=== PATIENT | male | born 1950 | race Caucasian/White ===

== ENCOUNTER → 2018-07-19 | Day surgery (SDC) | payer MEDICARE ==
[2018-07-13 13:26] LABS: BASOPHILS # (AUTO) 0.1 (0.0-0.1); BASOPHILS % 0.7 % (0.0-1.0); EOSINOPHILS # (AUTO) 0.2 (0.0-0.4); EOSINOPHILS % 2.1 % (0.0-6.0); HEMATOCRIT 45.6 % (38.2-49.6); HEMOGLOBIN 15.8 g/dL (14.0-18.0); LYMPHOCYTES # (AUTO) 1.7 (1.0-3.2); LYMPHOCYTES % 23.8 % (18.0-39.1); MEAN CORPUSCULAR HEMOGLOBIN 31.3 pg (28-32); MEAN CORPUSCULAR HGB CONC 34.6 g/dL (31-35); MEAN CORPUSCULAR VOLUME 90.3 fL (81-99); MONOCYTES # (AUTO) 0.6 (0.2-0.8); MONOCYTES % 7.9 % (4.4-11.3); NEUTROPHILS # (AUTO) 4.6 (2.1-6.9); NEUTROPHILS % 65.2 % (38.7-80.0); PLATELET COUNT 137 x10e3/uL (140-360); RED BLOOD COUNT 5.05 x10e6/uL (4.3-5.7); RED CELL DISTRIBUTION WIDTH 13.4 % (11.7-14.4)
[2018-07-13 13:43] LABS: ANION GAP 16.1 mmol/L (8-16); CALCIUM 10.3 mg/dL (8.4-10.2); CREATININE, SERUM 2.36 mg/dL (0.72-1.25); POTASSIUM 3.1 mmol/L (3.5-5.1)
[~2018-07-19] MED LIST: ACETAMINOPHEN 1000 MG/100 ML IV ONE; AMIODARONE HCL200 MG PO; ASPIR 8181 MG PO; ATORVASTATIN CA20 MG PO; BACITRACIN 50,000 UNIT VIAL ONE; CEFTRIAXONE SOD 1 GM/NS 50 ML 50 ML IV ONE; CLONAZEPAM1 MG PO; CLOPIDOGREL75 MG PO; FENTANYL CITRATE/PF 100MCG/2 ML INJ ONE; GLIMEPIRIDE2 MG PO; GLYCOPYRROLATE INJ 1MG/ 5 ML SYR ONE; HYDROCODONE/APAP 7.5MG-325MG 1 EA TAB ONE; KLOR-CON M2020 MEQ PO; LEVEMIR100 UNIT/1 SQ; LEVOTHYROXINE50 MCG PO; LIDOCAINE HCL 1% LOCAL INJ 20 ML VIAL ONE; LIDOCAINE HCL 2% LOCAL INJ 5 ML SDV VIAL INJ ONE; METOLAZONE5 MG PO; METOPROLOL TART25 MG PO; MIDAZOLAM HCL 2 MG/2 ML VIAL ONE; NITROGLYCERIN0.4 MG SL; ONDANSETRON HCL INJ 2MG/ML 2ML 2 MG/ML VIAL ONE; PHENYLEPHRINE HCL 1% 10 MG/ML VIAL ONE; POTASSIUM CHLORIDE 20MEQ/100ML 100 ML ONE; PRAMIPEXOLE D0.25 MG PO; PROPOFOL IV EMULSION 10 MG/ML 20 ML VIAL ONE; RANEXA500 MG PO; SERTRALINE HCL50 MG PO; SEVOFLURANE INHAL SOLN 250 ML PEN BTL ONE; TAMSULOSIN HCL0.4 MG PO; TORSEMIDE10 MG PO; VITAMIN D250000 UNIT PO; VITAMIN E400 UNI1 PO
--- OUTSIDE RECORDS SUMMARY | 2018-07-19 08:40 | XMS REPORT | Continuity of Care Document ---
Author Author [facility] Address Unknown Phone Unavailable Problems Problem Status Onset Date Classification Date Reported Comments Source PAD Active Problem 11/10/2015 [facility] CAD Active Problem 11/10/2015 [facility] Type 2 diabetes mellitus with diabetic peripheral angiopathy without gangrene Active Problem 11/10/2015 [facility] RLS Active Problem 11/10/2015 [facility] CHF Active Problem 11/10/2015 [facility] SUDEEP Active Problem 11/10/2015 [facility] Pure hypercholesterolemia Active Problem 11/10/2015 [facility] Renal insufficiency Active Problem 11/10/2015 [facility] Anemia Active Diagnosis 06/03/2015 [facility] Fatigue Active Diagnosis 05/29/2015 [facility] Hypotension Active Diagnosis 05/29/2015 [facility] Paraproteinemia Active Diagnosis 07/31/2015 [facility] Colon cancer Active Diagnosis 11/10/2015 [facility] COPD Active Problem 11/10/2015 [facility] Colonic mass Active Diagnosis 07/31/2015 [facility] Medications Medication Details Route Status Patient Instructions Ordering Provider Order Date Source Ventolin HFA 2 puffs as needed Inhalation Active 108 (90 Base) MCG/ACT Inhalation every 4 hrs [place] 08/26/2015 [facility] ProAir HFA 1 to 2 q 4 hrs prn wheezing Inhalation Active 108 (90 Base) MCG/ACT Inhalation every 4 hrs [place] 08/20/2015 [facility] Metformin HCl 1 tablet with meals Orally No Longer Active 500 mg Orally daily [place] 06/02/2015 [facility] Potassium 1 tablet Orally Active 95 MG Orally Once a day [facility] Ranexa 1 tablet Orally Active 500 MG Orally Twice a day [facility] Magnesium 1 tablet with a meal Orally Active 250 MG Orally Once a day [facility] Diltiazem HCl 1 capsule on an empty stomach in the morning Orally Active 120 MG Orally Once a day [facility] Metoprolol Succinate ER 1 tablet Orally Active 25 MG Orally Once a day [facility] Levemir Flexpen 58 UNITS Subcutaneous Active 100 UNIT/ML Subcutaneous daily [facility] B Complex 1 tablet Orally Active Orally daily [facility] Clonazepam 1/2 half tablet Orally Active 1 MG Orally every day (qd) prn [facility] Iron 1 tablet Orally Active 65 MG Orally daily [facility] Furosemide 2 tablets Orally Active 40 mg Orally twice a day (bid) [facility] Atorvastatin Calcium 1/2 half tablet Orally Active 20 mg Orally Once a day [facility] Nitroglycerin Unknown Sublingual Active 0.4 MG Sublingual [facility] Vitamin D-3 Super Strength Unknown Orally Active 2000 UNIT Orally [facility] Pramipexole Dihydrochloride 2 tablets Orally Active 0.125 MG Orally Once a day prn [facility] Aspirin 1 tablet Orally Active 81 MG Orally Once a day [facility] Nitrostat Unknown Sublingual Active 0.4 MG Sublingual [facility] Clopidogrel Bisulfate 1 tablet Orally Active 75 MG Orally Once a day [facility] Sertraline HCl 1 tablet Orally Active 50 MG Orally Once a day [facility] Metformin HCl 1 tablet with meals Orally Active 500 MG Orally Twice a day [facility] NovoLog Flexpen Unknown Subcutaneous Active 100 UNIT/ML Subcutaneous [facility] Allergies, Adverse Reactions, Alerts Substance Category Reaction Severity Reaction type Status Date Reported Comments Source Iodine Adverse Reaction Info Not Available Adverse Reaction Active 11/09/2015 [facility] Immunizations Immunization Date Given Site Status Last Updated Comments Source Influenza 11/09/2015 completed [facility] Results Order Name Results Value Reference Range Date Interpretation Comments Source Vital Signs Vital Sign Value Date Comments Source Weight 190 11/09/2015 [facility] Height 68 11/09/2015 [facility] Temperature Oral (F) 97.8 F 11/09/2015 [facility] Heart Rate 72 11/09/2015 [facility] Diastolic (mm Hg) 56 11/09/2015 [facility] Systolic (mm Hg) 118 11/09/2015 [facility] Weight 192 09/28/2015 [facility] Height 68 09/28/2015 [facility] Temperature Oral (F) 97.3 F 09/28/2015 [facility] Heart Rate 76 09/28/2015 [facility] Diastolic (mm Hg) 64 09/28/2015 [facility] Systolic (mm Hg) 104 09/28/2015 [facility] Weight 192 07/29/2015 [facility] Height 68 07/29/2015 [facility] Temperature Oral (F) 98.1 F 07/29/2015 [facility] Heart Rate 72 07/29/2015 [facility] Diastolic (mm Hg) 66 07/29/2015 [facility] Systolic (mm Hg) 120 07/29/2015 [facility] Weight 187 06/24/2015 [facility] Height 68 06/24/2015 [facility] Temperature Oral (F) 97.7 F 06/24/2015 [facility] Heart Rate 64 06/24/2015 [facility] Diastolic (mm Hg) 62 06/24/2015 [facility] Systolic (mm Hg) 114 06/24/2015 [facility] Weight 186 06/02/2015 [facility] Height 68 06/02/2015 [facility] Temperature Oral (F) 97.7 F 06/02/2015 [facility] Heart Rate 84 06/02/2015 [facility] Diastolic (mm Hg) 68 06/02/2015 [facility] Systolic (mm Hg) 122 06/02/2015 [facility] Weight 188 05/25/2015 [facility] Height 68 05/25/2015 [facility] Temperature Oral (F) 99.0 F 05/25/2015 [facility] Heart Rate 76 05/25/2015 [facility] Diastolic (mm Hg) 50 05/25/2015 [facility] Systolic (mm Hg) 110 05/25/2015 [facility] Encounters Location Location Details Encounter Type Encounter Number Reason For Visit Attending Provider ADM Date DC Date Status Source [facility] Consult [id number] 05/25/2015 05/25/2015 [facility] Consult [id number] 05/25/2015 05/25/2015 [facility] Consult [id number] 05/25/2015 05/25/2015 [facility] Consult [id number] 05/25/2015 05/25/2015 [facility] Consult [id number] 05/25/2015 05/25/2015 [facility] Consult [id number] 05/25/2015 05/25/2015 [facility] Consult [id number] 05/25/2015 05/25/2015 [facility] Consult [id number] 05/25/2015 05/25/2015 [facility] Consult [id number] 05/25/2015 05/25/2015 [facility] Consult [id number] 05/25/2015 05/25/2015 [facility] Needs call back from Medical Staff [id number] 05/25/2015 05/25/2015 [facility] Needs call back from Medical Staff [id number] 05/25/2015 05/25/2015 [facility] Needs call back from Medical Staff [id number] 05/25/2015 05/25/2015 [facility] Needs call back from Medical Staff [id number] 05/25/2015 05/25/2015 [facility] Needs call back from Medical Staff [id number] 05/25/2015 05/25/2015 [facility] Needs call back from Medical Staff [id number] 05/25/2015 05/25/2015 [facility] Needs call back from Medical Staff [id number] 05/25/2015 05/25/2015 [facility] Needs call back from Medical Staff [id number] 05/25/2015 05/25/2015 [facility] Needs call back from Medical Staff [id number] 05/25/2015 05/25/2015 [facility] Needs call back from Medical Staff [id number] 05/25/2015 05/25/2015 [facility] Needs call back from Medical Staff [id number] 05/25/2015 05/25/2015 [facility] 1 wk fu [id number] 06/02/2015 06/02/2015 [facility] 1 wk fu [id number] 06/02/2015 06/02/2015 [facility] 1 wk fu [id number] 06/02/2015 06/02/2015 [facility] 1 wk fu [id number] 06/02/2015 06/02/2015 [facility] 1 wk fu [id number] 06/02/2015 06/02/2015 [facility] 1 wk fu [id number] 06/02/2015 06/02/2015 [facility] 1 wk fu [id number] 06/02/2015 06/02/2015 [facility] 1 wk fu [id number] 06/02/2015 06/02/2015 [facility] 1 wk fu [id number] 06/02/2015 06/02/2015 [facility] Unknown [id number] 06/02/2015 06/02/2015 [facility] Unknown [id number] 06/02/2015 06/02/2015 [facility] Unknown [id number] 06/02/2015 06/02/2015 [facility] Unknown [id number] 06/02/2015 06/02/2015 [facility] Unknown [id number] 06/02/2015 06/02/2015 [facility] Unknown [id number] 06/02/2015 06/02/2015 [facility] Unknown [id number] 06/02/2015 06/02/2015 [facility] Unknown [id number] 06/02/2015 06/02/2015 [facility] 3 wk [id number] 06/24/2015 06/24/2015 [facility] 3 wk [id number] 06/24/2015 06/24/2015 [facility] 3 wk [id number] 06/24/2015 06/24/2015 [facility] 3 wk [id number] 06/24/2015 06/24/2015 [facility] 3 wk [id number] 06/24/2015 06/24/2015 [facility] 3 wk [id number] 06/24/2015 06/24/2015 [facility] 3 wk [id number] 06/24/2015 06/24/2015 [facility] 5 wks fu [id number] 07/29/2015 07/29/2015 [facility] 5 wks fu [id number] 07/29/2015 07/29/2015 [facility] 5 wks fu [id number] 07/29/2015 07/29/2015 [facility] 5 wks fu [id number] 07/29/2015 07/29/2015 [facility] 5 wks fu [id number] 07/29/2015 07/29/2015 [facility] 5 wks fu [id number] 07/29/2015 07/29/2015 [facility] Unknown [id number] 08/20/2015 08/20/2015 [facility] Unknown [id number] 08/20/2015 08/20/2015 [facility] Unknown [id number] 08/20/2015 08/20/2015 [facility] Unknown [id number] 08/20/2015 08/20/2015 [facility] Unknown [id number] 08/20/2015 08/20/2015 [facility] Unknown [id number] 08/25/2015 08/25/2015 [facility] Unknown [id number] 08/25/2015 08/25/2015 [facility] Unknown [id number] 08/25/2015 08/25/2015 [facility] Unknown [id number] 08/25/2015 08/25/2015 [facility] Returned call [id number] 08/27/2015 08/27/2015 [facility] Returned call [id number] 08/27/2015 08/27/2015 [facility] Returned call [id number] 08/27/2015 08/27/2015 [facility] COPD & fu [id number] 09/28/2015 09/28/2015 [facility] COPD & fu [id number] 09/28/2015 09/28/2015 [facility] [id number] 11/09/2015 11/09/2015 [facility] Procedures Procedure Code Date Perfomer Comments Source
[2018-07-19 13:00] VITALS: BP 109/70
--- NOTE | 2018-08-19 15:22 | Operative Report ---
DATE OF PROCEDURE: 07/19/2018 SURGEON: Kit Chanel MD PREOPERATIVE DIAGNOSIS: Malfunction of genitourinary penile prosthesis. POSTOPERATIVE DIAGNOSIS: Malfunction of genitourinary penile prosthesis. PROCEDURE PERFORMED: Removal and replacement of GUPP. ANESTHESIA: General anesthesia. ESTIMATED BLOOD LOSS: 50 mL. INDICATIONS: Mr. Dada Reyes is a 67-year-old gentleman who previously underwent placement of an inflatable penile prosthesis was then unable to deflate the prosthesis on a regular basis. He presents for removal and replacement of this prosthesis. PROCEDURE IN DETAIL: The patient was brought in the operating room, placed in supine position. After administration of general anesthesia, he was prepped and draped in usual sterile fashion. Cole catheter was placed and the balloon inflated. A penoscrotal incision was made sharply and dissection was carried out through the layers of the penis. Taking great care to prevent injury to the urethra. The cavernosa bodies were entered first on the right and subsequently on the left. The corporal cylinders were removed without difficulty. There was some twisting noted of the tubing at the base of the penis. The scrotum was entered and the pump was removed. This had twisted 360 degrees, thereby making inflation, deflation difficult. Both of these were removed. The corporal bodies were irrigated with antibiotic saline using a 14-Serbian red rubber catheter. Both cylinders were replaced with a 21 cm cylinders and the corporal bodies were closed using an interrupted PDS stitch. A new pump was placed as the deflation button was anterior and superficial and the scrotum was closed using Vicryl suture. The previous right inguinal incision was opened and the dissection was carried out through the layers of the abdomen. A horizontal incision was made over the rectus fascia and the previous reservoir was removed. This was replaced with a flat reservoir. The fascial incision was closed and tubing from the scrotum was brought up into the groin using a needle. The pump and the reservoir were then connected using the quick connect method. The device cycled on the field and was noted to provide good rigidity and easy deflation. All wounds were copiously irrigated with antibiotic saline and closed in layers. The skin being closed with a subcuticular stitch. Both wounds were then cleaned and dried and covered with Mastisol, Steri-Strips and a sterile gauze dressing. Anesthesia was reversed and the patient was transferred to a bed and taken to the postanesthesia care unit in good condition. Of note, the needle and instrument count were correct at the conclusion of the case. MD SALTY Cruz/NASH /[id number]
== END | disposition home or self-care (01) ==
LOC: OR 08:38
PROVIDERS: ATTEND Urology
DX: T83.490A Other mechanical complication of implanted penile prosthesis, initial encounter (principal); J44.9 Chronic obstructive pulmonary disease, unspecified; G47.33 Obstructive sleep apnea (adult) (pediatric); I25.810 Atherosclerosis of coronary artery bypass graft(s) without angina pectoris; I25.2 Old myocardial infarction; E11.9 Type 2 diabetes mellitus without complications; E03.9 Hypothyroidism, unspecified; E78.5 Hyperlipidemia, unspecified; M54.9 Dorsalgia, unspecified; M19.90 Unspecified osteoarthritis, unspecified site; F41.9 Anxiety disorder, unspecified; F32.9 Major depressive disorder, single episode, unspecified; R42 Dizziness and giddiness; F17.210 Nicotine dependence, cigarettes, uncomplicated; Y83.1 Surgical operation with implant of artificial internal device as the cause of abnormal reaction of the patient, or of later complication, without mention of misadventure at the time of the procedure; Z91.041 Radiographic dye allergy status; Z01.810 Encounter for preprocedural cardiovascular examination; Z01.812 Encounter for preprocedural laboratory examination; Z79.4 Long term (current) use of insulin; Z79.84 Long term (current) use of oral hypoglycemic drugs; Z68.30 Body mass index [BMI] 30.0-30.9, adult; Z95.1 Presence of aortocoronary bypass graft; Z95.5 Presence of coronary angioplasty implant and graft; Z95.810 Presence of automatic (implantable) cardiac defibrillator
CPT/HCPCS: 36415 ×2; 54416; 80048; 82948; 84132; 85025; 88300; 93005; C1813 ×2; J0131; J0696; J2001 ×2; J2250; J2370; J2405; J2704; J3480; J3490; J3010

== ENCOUNTER → 2019-04-04 | Day surgery (SDC) | payer MEDICARE ==
[2019-03-26 15:19] LABS: BASOPHILS % 0.7 % (0.0-1.0); EOSINOPHILS # (AUTO) 0.1 (0.0-0.4); EOSINOPHILS % 2.1 % (0.0-6.0); HEMATOCRIT 44.9 % (38.2-49.6); HEMOGLOBIN 15.4 g/dL (14.0-18.0); LYMPHOCYTES # (AUTO) 1.2 (1.0-3.2); LYMPHOCYTES % 19.8 % (18.0-39.1); MEAN CORPUSCULAR HEMOGLOBIN 32.1 pg (28-32); MEAN CORPUSCULAR HGB CONC 34.3 g/dL (31-35); MEAN CORPUSCULAR VOLUME 93.5 fL (81-99); MONOCYTES # (AUTO) 0.5 (0.2-0.8); MONOCYTES % 7.8 % (4.4-11.3); NEUTROPHILS # (AUTO) 4.3 (2.1-6.9); NEUTROPHILS % 69.3 % (38.7-80.0); PLATELET COUNT 114 x10e3/uL (140-360); RED CELL DISTRIBUTION WIDTH 12.9 % (11.7-14.4)
[2019-03-26 15:35] LABS: ANION GAP 15.9 mmol/L (8-16); CALCIUM 9.8 mg/dL (8.4-10.2); CREATININE, SERUM 2.44 mg/dL (0.72-1.25); POTASSIUM 3.9 mmol/L (3.5-5.1)
--- NOTE | 2019-03-26 15:39 | Diagnostic Imaging Report ---
EXAMINATION: CHEST 2 VIEWS INDICATION: Pre-operative COMPARISON: None FINDINGS: LINES/TUBES:Left chest AICD. LUNGS:The lungs are well-inflated. No focal consolidation or pulmonary edema. PLEURA:No pleural effusion or pneumothorax. MEDIASTINUM:The cardiomediastinal silhouette appears normal in size and shape. Atherosclerotic calcifications of the thoracic aorta. Postoperative findings of prior CABG. BONES/SOFT TISSUES:No acute osseous injury. Sternotomy wires in place. ABDOMEN:No free air under the diaphragm. IMPRESSION: No focal pneumonia or pulmonary edema. Signed by: Lisa Vincent MD on 03/26/2019 3:36 PM
[~2019-04-04] MED LIST changes: +COMBIVENT RESPIM4 GM IH; +DEXAMETHASONE SOD PHOS INJ 4 MG/ML VIAL ONE; -GLYCOPYRROLATE INJ 1MG/ 5 ML SYR ONE; -HYDROCODONE/APAP 7.5MG-325MG 1 EA TAB ONE; +LIDOCAINE HCL 2% LOCAL 20 ML VIAL ONE; +MELATONIN3 MG PO; -MIDAZOLAM HCL 2 MG/2 ML VIAL ONE; -ONDANSETRON HCL INJ 2MG/ML 2ML 2 MG/ML VIAL ONE; -PHENYLEPHRINE HCL 1% 10 MG/ML VIAL ONE; -POTASSIUM CHLORIDE 20MEQ/100ML 100 ML ONE; +VALERIAN ROOT100 MG PO; +[UNRECOGNIZED DRUG - OTHER] INH
--- OUTSIDE RECORDS SUMMARY | 2019-04-04 07:04 | XMS REPORT ---
[facility] Address Unknown Phone Unavailable Care Team Providers Care Sales Financial Analyst Name Role Phone Johnny POLLACK Unavailable Unavailable Payers Payer Name Policy Type Policy Number Effective Date Expiration Date Problems This patient has no known problems. Allergies, Adverse Reactions, Alerts Allergy Name Allergy Type Status Severity Reaction(s) Onset Date Inactive Date Treating Clinician Comments iodine DA Active MO 2018-12-14 00:00:00 No Known Drug Intolerances DA Active U 2008-08-18 00:00:00 Not Converted 80. See Text. DA Active U 2008-08-18 00:00:00 Medications This patient has no known medications. Results Test Description Test Time Test Comments Text Results Atomic Results Result Comments CHEST 2 VIEWS 2019-03-26 15:36:00 [place] [address] Patient Name: EDWIN COLLINS SR MR #: [id number] : 1950 Age/Sex: 68/M Req #: [id number] Adm Physician: Ordered by: WILBER POLLACK MD Report #: [id number] Location: OR Room/Bed: Procedure: [id number] DX/CHEST 2 VIEWS Exam Date: 03/26/19 Exam Time: 1507 REPORT STATUS: Signed EXAMINATION: CHEST 2 VIEWS INDICATION: Pre-operative COMPARISON: None FINDINGS: LINES/TUBES:Left chest AICD. LUNGS:The lungs are well-inflated. No focal consolidation or pulmonary edema. PLEURA:No pleural effusion or pneumothorax. MEDIASTINUM:The cardiomediastinal silhouette appears normal in size and shape. Atherosclerotic calcifications of the thoracic aorta. Postoperative findings of prior CABG. BONES/SOFT TISSUES:No acute osseous injury. Sternotomy wires in place. ABDOMEN:No free air under the diaphragm. IMPRESSION: No focal pneumonia or pulmonary edema. Signed by: Xiao Grewal MD on 03/26/2019 3:36 PM Dictated By: XIAO GREWAL MD 153 Transcribed By: BROOKLYN on 03/26/19 1536 COPY TO: WILBER POLLACK MD GLUBED 2018-12-16 09:20:00 GLUBED (test code=GLUBED) 218 MG/DL 74-106 [id number] 21:50:00* Test Item Value Reference Range Comments GLUBED (test code=GLUBED) 288 MG/DL 74-106 [id number] 17:57:00* Test Item Value Reference Range Comments POTASSIUM (test code=K) 3.4 mmol/L 3.4-5.0 [id number] 17:35:00* Test Item Value Reference Range Comments GLUBED (test code=GLUBED) 379 MG/DL 74-106 [id number] 12:42:00* Test Item Value Reference Range Comments GLUBED (test code=GLUBED) 418 MG/DL 74-106 RPT,RBV TO PHYSICIAN A VENOUS SPECIMEN SHOULD BE ORDERED FOR GLUCOSE VERIFICATION IF MEDICALLY NECESSARY. BASIC METABOLIC [id number] 09:42:00* Test Item Value Reference Range Comments SODIUM (test code=NA) 132 mmol/L 137-145 POTASSIUM (test code=K) 2.7 mmol/L 3.4-5.0 Critical Value reported toFirst Name:[id number] Last Name:RESULTS READ BACK AND VERIFIEDby DAVID, on 12/15/18, @ 0942. CHLORIDE (test code=CL) 97 mmol/L 98-107 CARBON DIOXIDE (test code=CO2) 23 mmol/L 22-30 GLUCOSE (test code=GLU) 364 mg/dL 74-106 BLOOD UREA NITROGEN (test code=BUN) 81 mg/dL 9-20 GLOMERULAR FILTRATION RATE (test code=GFR) 49 >60 The estimated glomerular filtration rate is computed usingpatient race, age (>18), sex, and serum creatinine. If anyof the needed data elements are missing the Laboratory cannot compute an estimation of the glomerular filtration rate. CREATININE (test code=CREAT) 1.5 mg/dL 0.7-1.3 CALCIUM (test code=CA) 6.7 mg/dL 8.4-10.2 [id number] 09:42:00* Test Item Value Reference Range Comments MAGNESIUM (test code=MAG) 2.3 mg/dL 1.6-2.3 CBC W/AUTO [id number] 09:21:00* Test Item Value Reference Range Comments WHITE BLOOD CELL (test code=WBC) 10.0 x10 3/uL 5.0-12.0 RED BLOOD CELL (test code=RBC) 5.08 x10 6/uL 4.70-6.10 HEMOGLOBIN (test code=HGB) 15.9 g/dL 14.0-18.0 HEMATOCRIT (test code=HCT) 43.8 % 37.0-49.0 MEAN CELL VOLUME (test code=MCV) 86 fL 80-94 MEAN CELL HGB (test code=MCH) 31.3 pg 27-31 MEAN CELL HGB CONCENTRATION (test code=MCHC) 36.3 g/dL 33-37 RED CELL DISTRIBUTION WIDTH (test code=RDW) 13.2 % 11.5-15.5 PLATELET COUNT (test code=PLT) 117 x10 3/uL 130-400 MEAN PLATELET VOLUME (test code=MPV) 11.2 fL 9.4-16.4 NEUTROPHIL % (test code=NT%) 88.4 % 43-65 IMMATURE GRANULOCYTE % (test code=IG%) 0.5 % 0.0-2.0 LYMPHOCYTE % (test code=LY%) 7.0 % 20.5-45.5 MONOCYTE % (test code=MO%) 4.0 % 5.5-11.7 EOSINOPHIL % (test code=EO%) 0.0 % 0.9-2.9 BASOPHIL % (test code=BA%) 0.1 % 0.2-1.0 NUCLEATED RBC % (test code=NRBC%) 0.0 % 0-1.0 NEUTROPHIL # (test code=NT#) 8.82 x10 3/uL 2.2-4.8 IMMATURE GRANULOCYTE # (test code=IG#) 0.05 x10 3/uL 0-0.03 LYMPHOCYTE # (test code=LY#) 0.70 x10 3/uL 1.3-2.9 MONOCYTE # (test code=MO#) 0.40 x10 3/uL 0.3-0.8 EOSINOPHIL # (test code=EO#) 0.00 x10 3/uL 0.0-0.2 BASOPHIL # (test code=BA#) 0.01 x10 3/uL 0.0-0.1 [id number] 08:48:00* Test Item Value Reference Range Comments GLUBED (test code=GLUBED) 356 MG/DL 74-106 [id number] 04:47:00* Test Item Value Reference Range Comments GLUBED (test code=GLUBED) 439 MG/DL 74-106 Read Back to A VENOUS SPECIMEN SHOULD BE ORDERED FOR GLUCOSE VERIFICATION IF MEDICALLY NECESSARY. [id number] 23:01:00* Test Item Value Reference Range Comments GLUBED (test code=GLUBED) > 600 MG/DL 74-106 A VENOUS SPECIMEN SHOULD BE ORDERED FOR GLUCOSE VERIFICATION IF MEDICALLY NECESSARY. CARDIAC ENZYMES [id number] 22:08:00* Test Item Value Reference Range Comments TROPONIN-I (test code=TROPI) 0.024 ng/mL 0.012-0.033 Please be advised of the updated reference ranges for the new Chemistry instrumentation. VITROS TROPONIN I CRITERIANORMAL PATIENT W/O CIRCULATING TNI: 0.012-0.033 ng/mLCIRCULATING TNI PRESENT: 0.034-0.119 ng/mL(MAY BE AT RISK OF AMI)AMI DIAGNOSTIC CUTOFF: >/=0.120 ng/mL~~~~~~~~~~~~~~~~~~~~~~~~~~~~~~~~~~~~~~~~~~~~~~~~~~~~~~~~~~~The use of serial sampling and testing protocol is arecommended practice.An elevated troponin level alone is often not sufficient fordiagnosis of myocardial infarction. Troponin results obtained by different assays may vary.Evaluation of the extent of myocardial damage based onincrease of troponin would be valid only if similarmethodology is used.~~~~~~~~~~~~~~~~~~~~~~~~~~~~~~~~~~~~~~~~~~~~~~~~~~~~~~~~~~~ Spec Comments: Cancel third set if POC Troponin completed in ED [id number] 20:02:00* Test Item Value Reference Range Comments GLUBED (test code=GLUBED) 339 MG/DL 74-106 [id number] 17:22:00* Test Item Value Reference Range Comments CKMB (test code=CKMBT) 1.84 ng/mL 0.5-5.0 CARDIAC ENZYMES [id number] 17:03:00* Test Item Value Reference Range Comments TROPONIN-I (test code=TROPI) 0.034 ng/mL 0.012-0.033 Please be advised of the updated reference ranges for the new Chemistry instrumentation. VITROS TROPONIN I CRITERIANORMAL PATIENT W/O CIRCULATING TNI: 0.012-0.033 ng/mLCIRCULATING TNI PRESENT: 0.034-0.119 ng/mL(MAY BE AT RISK OF AMI)AMI DIAGNOSTIC CUTOFF: >/=0.120 ng/mL~~~~~~~~~~~~~~~~~~~~~~~~~~~~~~~~~~~~~~~~~~~~~~~~~~~~~~~~~~~The use of serial sampling and testing protocol is arecommended practice.An elevated troponin level alone is often not sufficient fordiagnosis of myocardial infarction. Troponin results obtained by different assays may vary.Evaluation of the extent of myocardial damage based onincrease of troponin would be valid only if similarmethodology is used.~~~~~~~~~~~~~~~~~~~~~~~~~~~~~~~~~~~~~~~~~~~~~~~~~~~~~~~~~~~ Spec Comments: Cancel third set if POC Troponin completed in ED [id number] 16:04:00* Test Item Value Reference Range Comments GLUBED (test code=GLUBED) 250 MG/DL 74-106 CARDIAC ENZYMES [id number] 13:10:00* Test Item Value Reference Range Comments TROPONIN-I (test code=TROPI) 0.042 ng/mL 0.012-0.033 Please be advised of the updated reference ranges for the new Chemistry instrumentation. VITROS TROPONIN I CRITERIANORMAL PATIENT W/O CIRCULATING TNI: 0.012-0.033 ng/mLCIRCULATING TNI PRESENT: 0.034-0.119 ng/mL(MAY BE AT RISK OF AMI)AMI DIAGNOSTIC CUTOFF: >/=0.120 ng/mL~~~~~~~~~~~~~~~~~~~~~~~~~~~~~~~~~~~~~~~~~~~~~~~~~~~~~~~~~~~The use of serial sampling and testing protocol is arecommended practice.An elevated troponin level alone is often not sufficient fordiagnosis of myocardial infarction. Troponin results obtained by different assays may vary.Evaluation of the extent of myocardial damage based onincrease of troponin would be valid only if similarmethodology is used.~~~~~~~~~~~~~~~~~~~~~~~~~~~~~~~~~~~~~~~~~~~~~~~~~~~~~~~~~~~ Spec Comments: Cancel third set if POC Troponin completed in ED [id number] 11:53:00* Test Item Value Reference Range Comments POTASSIUM (test code=K) 3.0 mmol/L 3.4-5.0 TSH REFLEX TO [id number] 11:53:00* Test Item Value Reference Range Comments TSH REFLEX TO FT4 (test code=TSHREFLEX) 2.030 MIU/L 0.465-4.68 A positive bias may occur for patients taking BIOTINsupplements. [id number] 11:52:00* Test Item Value Reference Range Comments CKMB (test code=CKMBT) 1.91 ng/mL 0.5-5.0 [id number] 11:40:00* Test Item Value Reference Range Comments GLUBED (test code=GLUBED) 120 MG/DL 74-106 CARDIAC ENZYMES [id number] 11:30:00* Test Item Value Reference Range Comments TROPONIN-I (test code=TROPI) 0.043 ng/mL 0.012-0.033 Please be advised of the updated reference ranges for the new Chemistry instrumentation. VITROS TROPONIN I CRITERIANORMAL PATIENT W/O CIRCULATING TNI: 0.012-0.033 ng/mLCIRCULATING TNI PRESENT: 0.034-0.119 ng/mL(MAY BE AT RISK OF AMI)AMI DIAGNOSTIC CUTOFF: >/=0.120 ng/mL~~~~~~~~~~~~~~~~~~~~~~~~~~~~~~~~~~~~~~~~~~~~~~~~~~~~~~~~~~~The use of serial sampling and testing protocol is arecommended practice.An elevated troponin level alone is often not sufficient fordiagnosis of myocardial infarction. Troponin results obtained by different assays may vary.Evaluation of the extent of myocardial damage based onincrease of troponin would be valid only if similarmethodology is used.~~~~~~~~~~~~~~~~~~~~~~~~~~~~~~~~~~~~~~~~~~~~~~~~~~~~~~~~~~~ HGBA1C - GLYCOSYLATED [id number] 11:24:00* Test Item Value Reference Range Comments GLYCOSYLATED HEMOGLOBIN (HA1C) (test code=GLYHGB) 9.1 % 0-5.9 Current guidelines recommend a treatment goal of <7% fordiabetic patients. A1c may be overestimated in diabeticpatients exhibiting poor control and who are alsoheterozygous or homozygous for HgbS or HgbC. Totalglycohemoglobin is a better indicator of diabetic control inpatients with these hemoglobin variants. 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 TECHNIQUE: Multiple CT images of the head were obtained. No intravenous contrast was given. Up-to-date CT equipment and radiation dose reduction techniques were utilized. Automat ic exposure control was utilized. FINDINGS: No intracranial hemorrhage or extra-axial collection is seen. No midline shift or mass eff ect is identified. There is no territorial infarct. The ventricles, sulci and cisterns are normal. The calvarium is intact. Peripheral soft tissues are normal. Paranasal sinuses and mastoid air cells are clear. IMPRESSION: No intracranial hemorrhage or territorial infarct. at 1006 Reported and signed by: Pk Wilkins MD CC: Serena Christy MD; Truman Hudson MD; Ria Aden AUTOMATIC SPLICING MACHINE OPERATOR Technologist: Katie Spears Trnscrd Dt/Tm: 12/14/2018 (1006) t.SDR.JADA 19 Orig Print D/T: S: 12/14/2018 (1009 PAGE 1 Signed Report [id number] 07:39:00* Test Item Value Reference Range Comments GLUBED (test code=GLUBED) 128 MG/DL 74-106 URINALYSIS [id number] 03:48:00* Test Item Value Reference Range Comments UA COLOR (test code=COLU) Yellow Yellow UA APPEARANCE (test code=APPU) Clear Clear UA GLUCOSE DIPSTICK (test code=DGLUU) >=500 (3+) Negative UA BILIRUBIN DIPSTICK (test code=BILU) Negative Negative UA KETONE DIPSTICK (test code=KETU) Negative mg/dL Negative UA SPECIFIC GRAVITY (test code=SGU) 1.011 <1.030 UA BLOOD DIPSTICK (test code=MITCH) Negative Negative UA PH DIPSTICK (test code=ARNULFO) 6.0 5.0-8.0 UA PROTEIN DIPSTICK (test code=PROU) NEGATIVE mg/dL Negative UA UROBILINOGEN DIPSTICK (test code=URO) Negative mg/dL Negative UA NITRITE DIPSTICK (test code=LINA) Negative Negative UA LEUKOCYTE ESTERASE DIPSTICK (test code=LEUU) NEGATIVE Negative UA WBC (test code=WBCU) 0-3 /HPF <4-5 UA RBC (test code=RBCU) NONE /HPF <4-5 UA BACTERIA (test code=BACU) NONE SEEN /HPF None-Rare UA SQUAMOUS CELLS (test code=SQU) 0-5 (RARE) /HPF 0-5 (RARE) UA MUCUS (test code=MUCU) Rare /LPF <Rare TROPONIN I [id number] 03:35:00* Test Item Value Reference Range Comments TROPONIN I RAPID (test code=TROPIRAP) 0.04 ng/mL 0.00-0.079 ISTAT TROPONIN I CRITERIA0.00-0.08 ng/mL - Negative>0.08 ng/mL - Positive The use of serial sampling and testing protocol is arecommended practice.An elevated troponin level alone is often not sufficient fordiagnosis of myocardial infarction. Troponin results obtained by different assays may vary.Evaluation of the extent of myocardial damage based onincrease of troponin would be valid only if similarmethodology is used. CBC W/AUTO [id number] 03:32:00* Test Item Value Reference Range Comments WHITE BLOOD CELL (test code=WBC) 14.2 x10 3/uL 5.0-12.0 RED BLOOD CELL (test code=RBC) 6.13 x10 6/uL 4.70-6.10 HEMOGLOBIN (test code=HGB) 19.5 g/dL 14.0-18.0 HEMATOCRIT (test code=HCT) 51.8 % 37.0-49.0 MEAN CELL VOLUME (test code=MCV) 85 fL 80-94 MEAN CELL HGB (test code=MCH) 31.8 pg 27-31 MEAN CELL HGB CONCENTRATION (test code=MCHC) 37.6 g/dL 33-37 RED CELL DISTRIBUTION WIDTH (test code=RDW) 13.5 % 11.5-15.5 PLATELET COUNT (test code=PLT) 181 x10 3/uL 130-400 MEAN PLATELET VOLUME (test code=MPV) 10.5 fL 9.4-16.4 NEUTROPHIL % (test code=NT%) 84.7 % 43-65 IMMATURE GRANULOCYTE % (test code=IG%) 0.4 % 0.0-2.0 LYMPHOCYTE % (test code=LY%) 8.6 % 20.5-45.5 MONOCYTE % (test code=MO%) 5.8 % 5.5-11.7 EOSINOPHIL % (test code=EO%) 0.1 % 0.9-2.9 BASOPHIL % (test code=BA%) 0.4 % 0.2-1.0 NUCLEATED RBC % (test code=NRBC%) 0.0 % 0-1.0 NEUTROPHIL # (test code=NT#) 12.05 x10 3/uL 2.2-4.8 IMMATURE GRANULOCYTE # (test code=IG#) 0.06 x10 3/uL 0-0.03 LYMPHOCYTE # (test code=LY#) 1.23 x10 3/uL 1.3-2.9 MONOCYTE # (test code=MO#) 0.82 x10 3/uL 0.3-0.8 EOSINOPHIL # (test code=EO#) 0.01 x10 3/uL 0.0-0.2 BASOPHIL # (test code=BA#) 0.06 x10 3/uL 0.0-0.1 BASIC METABOLIC [id number] 03:30:00* Test Item Value Reference Range Comments SODIUM (test code=NA) 130 mmol/L 137-145 POTASSIUM (test code=K) 3.0 mmol/L 3.4-5.0 CHLORIDE (test code=CL) 79 mmol/L 98-107 CARBON DIOXIDE (test code=CO2) 31 mmol/L 22-30 GLUCOSE (test code=GLU) 416 mg/dL 74-106 Critical Value reported toFirst Name:[id number] Last Name:RESULTS READ BACK AND VERIFIEDby BRUCE, on 12/14/18, @ 0330. BLOOD UREA NITROGEN (test code=BUN) 109 mg/dL 9-20 GLOMERULAR FILTRATION RATE (test code=GFR) 27 >60 The estimated glomerular filtration rate is computed usingpatient race, age (>18), sex, and serum creatinine. If anyof the needed data elements are missing the Laboratory cannot compute an estimation of the glomerular filtration rate. CREATININE (test code=CREAT) 2.5 mg/dL 0.7-1.3 CALCIUM (test code=CA) 9.1 mg/dL 8.4-10.2 - XR CHEST 1 [id number] 03:26:00 FAX: Truman Ladd [phone] [place]: St: REG Name: EDWIN ASENCIO LORENA [facility] : [birth year] Age/S: 67/M [address] Unit #: [id number] Loc: [place] [address] Phys: Jerry Dykes MD Acct: [id number] Dis Date: Status: REG ER PHONE #: [phone] Exam Date: 12/14/2018309 FAX #: [phone] Reason: High glucose EXAMS: CPT CODE: [id number] XR CHEST 1 V 15883 DICTATION LOCATION: H48 HISTORY: Male, 67 years of age with High glucose EXAM: CHEST X-RAY, ONE VIEW COMPARISON: 12/04/2018 COMMENT: Frontal view of the chest is provided. Sternotomy wires and AICD again not ed. No focal infiltrate, consolidation, mass lesion, or effusion is seen. Cardiac silhouette is within normal limits. No acute bony abnormalities. IMPRESSION: No acute cardiopulmonary disease. El ectronically Signed by Kaykay Ramirez MD on 12/14/2018 at 0326 Reported and signed by: Kaykay Ramirez MD CC: Truman Hudson MD Technologist: Digna Katz Date/Time/By: 12/14/2018 (0 326) : By: BijanCLW PAGE 1 Signed Report FAX: Truman Ladd [phone] Ca mpus: AISHA St: REG Name: EDWIN COLLINS [facility] : 1950 Age/S: 67/M [address] Unit #: [id number] Loc: [place] [address] Phys: Jerry Dykes MD Acct: [id number] Dis Date: Status: REG ER PHONE #: [phone] Exam Date: 12/14/2018309 FAX #: [phone] Reason: High glucose EXAMS: CPT CODE: [id number] XR CHEST 1 V 39381 <Continued> Orig Print D/T: S: 12/14/2018 (1175) PAGE 2 Signed Report TROPONIN I [id number] 17:44:00* Test Item Value Reference Range Comments TROPONIN I RAPID (test code=TROPIRAP) 0.02 ng/mL 0.00-0.079 ISTAT TROPONIN I CRITERIA0.00-0.08 ng/mL - Negative>0.08 ng/mL - Positive The use of serial sampling and testing protocol is arecommended practice.An elevated troponin level alone is often not sufficient fordiagnosis of myocardial infarction. Troponin results obtained by different assays may vary.Evaluation of the extent of myocardial damage based onincrease of troponin would be valid only if similarmethodology is used. LACTIC ACID [id number] 17:10:00* Test Item Value Reference Range Comments LACTIC ACID POC (test code=LACTP) 2.93 mmol/L 0.7-2.0 BASIC METABOLIC [id number] 15:44:00* Test Item Value Reference Range Comments SODIUM (test code=NA) 141 mmol/L 137-145 POTASSIUM (test code=K) 3.1 mmol/L 3.4-5.0 CHLORIDE (test code=CL) 94 mmol/L 98-107 CARBON DIOXIDE (test code=CO2) 33 mmol/L 22-30 GLUCOSE (test code=GLU) 361 mg/dL 74-106 BLOOD UREA NITROGEN (test code=BUN) 47 mg/dL 9-20 GLOMERULAR FILTRATION RATE (test code=GFR) 49 >60 The estimated glomerular filtration rate is computed usingpatient race, age (>18), sex, and serum creatinine. If anyof the needed data elements are missing the Laboratory cannot compute an estimation of the glomerular filtration rate. CREATININE (test code=CREAT) 1.5 mg/dL 0.7-1.3 CALCIUM (test code=CA) 9.7 mg/dL 8.4-10.2 LIVER FUNCTION [id number] 15:44:00* Test Item Value Reference Range Comments TOTAL PROTEIN (test code=PROT) 8.2 g/dL 6.3-8.2 ALBUMIN (test code=ALB) 4.5 g/dL 3.5-5.0 BILIRUBIN TOTAL (test code=BILT) 0.7 mg/dL 0.2-1.3 BILIRUBIN CONJUGATED (test code=BILCON) 0 mg/dL 0-0.3 ~~~~~~~~~~~~~~~~~~~~~~~~~~~~~~~~~~~~~~~~~~~~~~~~~~~~~~~~~~~~CONJUGATED BILIRUBIN IS THE REPLACEMENT ASSAY FOR DIRECTBILIRUBIN.~~~~~~~~~~~~~~~~~~~~~~~~~~~~~~~~~~~~~~~~~~~~~~~~~~~~~~~~~~~~ BILIRUBIN UNCONJUGATED (test code=BILUNC) 0.5 mg/dL 0-1.1 SGOT/AST (test code=AST) 33 U/L 15-46 SGPT/ALT (test code=ALT) 30 U/L 13-69 ALKALINE PHOSPHATASE (test code=ALKP) 91 U/L 38-126 [id number] 15:44:00* Test Item Value Reference Range Comments MAGNESIUM (test code=MAG) 2.2 mg/dL 1.6-2.3 NT PRO-BRAIN NATRIURETIC [id number] 15:44:00* Test Item Value Reference Range Comments NT PRO-BRAIN NATRIURETIC PEPTI (test code=PROBNP) 975 pg/mL 0-299 ~~~~~~~~~~~~~~~~~~~~~~~~~~~~~~~~~~~~~~~~~~~~~~~~~~~~~~~~~~~~NT PRO-BNP IS THE REPLACEMENT ASSAY FOR BNP.~~~~~~~~~~~~~~~~~~~~~~~~~~~~~~~~~~~~~~~~~~~~~~~~~~~~~~~~~~~~RULE-IN CUT POINTS FOR PATIENTS WITH SUSPECTED ACUTECONGESTIVE HEART FAILURE:<50 yrs old: >450 pg/mL50-75 yrs old: >900 pg/mL>75 yrs old: >1800 pg/mLA positive bias may occur on patients taking BIOTINsupplements. - XR CHEST 1 [id number] 15:44:00 FAX: Truman Ladd [phone] [place]: St: REG Name: EDWIN ASENCIO [facility] : [birth year] Age/S: 67/M [address] Unit #: [id number] Loc: [place] [address] Phys: Alek Ramos MD Acct: [id number] Dis Date: Status: REG ER PHONE #: [phone] Exam Date: 12/04/2018 1620 FAX #: [phone] Reason: sob EXAMS: CPT CODE: [id number] XR CHEST 1 V 14958 EXAM: - XR CHEST 1 V Location code:C3 HISTORY: sob COMPARISON: 07/06/2015 FINDINGS: Single AP view of the chest is provided. Left chest wall AICD and surgical changes of mediastinum are unchanged. Heart size and vascularity are within normal limits. The lungs are clear of focal consolidation. No effusion, pneumothorax, or acute osseous abnormality. IMPRESSION: 1. No radiographic evidence of acute cardiopulmonary process. at 7704 Reported and signed by: Chavez Bernard MD CC: Truman Varma echnologist: DARION PATTERSON RT (R) Trnscrd Date /Time/By: 12/04/2018 (1544) : By: [email or web address].[email or web address] PAGE 1 Signed Report FAX: Truman Ladd [phone] [place]: St: REG Name: EDWIN COLLINS [facility] : 1950 Age/S: 67/M [address] Unit #: [id number] Loc: [place] [address] Phys: Alek Ramos MD Acct: [id number] Dis Date: Status: REG ER PHONE #: [phone] Exam Date: 12/04/2018 1620 FAX #: [phone] Reason: sob EXAMS: CPT CODE: [id number] XR CHEST 1 V 26440 <Continued> Orig Print D/T: S: 12/04/2018 (5995) PAGE 2 Signed Report BASIC METABOLIC [id number] 15:41:00* Test Item Value Reference Range Comments SODIUM (test code=NA) 141 mmol/L 137-145 POTASSIUM (test code=K) 3.1 mmol/L 3.4-5.0 CHLORIDE (test code=CL) 94 mmol/L 98-107 CARBON DIOXIDE (test code=CO2) 33 mmol/L 22-30 GLUCOSE (test code=GLU) 361 mg/dL 74-106 BLOOD UREA NITROGEN (test code=BUN) 47 mg/dL 9-20 GLOMERULAR FILTRATION RATE (test code=GFR) 49 >60 The estimated glomerular filtration rate is computed usingpatient race, age (>18), sex, and serum creatinine. If anyof the needed data elements are missing the Laboratory cannot compute an estimation of the glomerular filtration rate. CREATININE (test code=CREAT) 1.5 mg/dL 0.7-1.3 CALCIUM (test code=CA) 9.7 mg/dL 8.4-10.2 LIVER FUNCTION [id number] 15:41:00* Test Item Value Reference Range Comments TOTAL PROTEIN (test code=PROT) 8.2 g/dL 6.3-8.2 ALBUMIN (test code=ALB) 4.5 g/dL 3.5-5.0 BILIRUBIN TOTAL (test code=BILT) 0.7 mg/dL 0.2-1.3 BILIRUBIN CONJUGATED (test code=BILCON) 0 mg/dL 0-0.3 ~~~~~~~~~~~~~~~~~~~~~~~~~~~~~~~~~~~~~~~~~~~~~~~~~~~~~~~~~~~~CONJUGATED BILIRUBIN IS THE REPLACEMENT ASSAY FOR DIRECTBILIRUBIN.~~~~~~~~~~~~~~~~~~~~~~~~~~~~~~~~~~~~~~~~~~~~~~~~~~~~~~~~~~~~ BILIRUBIN UNCONJUGATED (test code=BILUNC) 0.5 mg/dL 0-1.1 SGOT/AST (test code=AST) 33 U/L 15-46 SGPT/ALT (test code=ALT) 30 U/L 13-69 ALKALINE PHOSPHATASE (test code=ALKP) 91 U/L 38-126 [id number] 15:41:00* Test Item Value Reference Range Comments MAGNESIUM (test code=MAG) 2.2 mg/dL 1.6-2.3 NT PRO-BRAIN NATRIURETIC [id number] 15:41:00* Test Item Value Reference Range Comments NT PRO-BRAIN NATRIURETIC PEPTI (test code=PROBNP) pg/mL 0-299 BASIC METABOLIC [id number] 15:36:00* Test Item Value Reference Range Comments SODIUM (test code=NA) 141 mmol/L 137-145 POTASSIUM (test code=K) 3.1 mmol/L 3.4-5.0 CHLORIDE (test code=CL) 94 mmol/L 98-107 CARBON DIOXIDE (test code=CO2) 33 mmol/L 22-30 GLUCOSE (test code=GLU) 361 mg/dL 74-106 BLOOD UREA NITROGEN (test code=BUN) 47 mg/dL 9-20 GLOMERULAR FILTRATION RATE (test code=GFR) 49 >60 The estimated glomerular filtration rate is computed usingpatient race, age (>18), sex, and serum creatinine. If anyof the needed data elements are missing the Laboratory cannot compute an estimation of the glomerular filtration rate. CREATININE (test code=CREAT) 1.5 mg/dL 0.7-1.3 CALCIUM (test code=CA) 9.7 mg/dL 8.4-10.2 LIVER FUNCTION [id number] 15:36:00* Test Item Value Reference Range Comments TOTAL PROTEIN (test code=PROT) 8.2 g/dL 6.3-8.2 ALBUMIN (test code=ALB) 4.5 g/dL 3.5-5.0 BILIRUBIN TOTAL (test code=BILT) 0.7 mg/dL 0.2-1.3 BILIRUBIN CONJUGATED (test code=BILCON) 0 mg/dL 0-0.3 ~~~~~~~~~~~~~~~~~~~~~~~~~~~~~~~~~~~~~~~~~~~~~~~~~~~~~~~~~~~~CONJUGATED BILIRUBIN IS THE REPLACEMENT ASSAY FOR DIRECTBILIRUBIN.~~~~~~~~~~~~~~~~~~~~~~~~~~~~~~~~~~~~~~~~~~~~~~~~~~~~~~~~~~~~ BILIRUBIN UNCONJUGATED (test code=BILUNC) 0.5 mg/dL 0-1.1 SGOT/AST (test code=AST) 33 U/L 15-46 SGPT/ALT (test code=ALT) 30 U/L 13-69 ALKALINE PHOSPHATASE (test code=ALKP) 91 U/L 38-126 [id number] 15:36:00* Test Item Value Reference Range Comments MAGNESIUM (test code=MAG) mg/dL 1.6-2.3 NT PRO-BRAIN NATRIURETIC [id number] 15:36:00* Test Item Value Reference Range Comments NT PRO-BRAIN NATRIURETIC PEPTI (test code=PROBNP) pg/mL 0-299 PROTHROMBIN [id number] 15:30:00* Test Item Value Reference Range Comments PROTHROMBIN TIME PATIENT (test code=PTP) 10.8 SECONDS 9.2-12.1 INTERNATIONAL NORMAL RATIO (test code=INR) 1.0 The INR is to be used only for monitoring ORAL ANTICOAGULANTTHERAPY. Indication INR Value1. Prophylaxis/treatment of: Venous Thrombosis, Pulmonary Embolism 2.0 - 3.02. Prevention of systemic embolism from: Tissue heart valves 2.0 - 3.0 Acute myocardial infarction (to present systemic embolism)* 2.0 - 3.0 Valvular heart disease 2.0 - 3.0 Atrial fibrillation 2.0 - 3.03. Mechanical prosthetic valves (high risk) 2.5 - 3.5 * If oral anticoagulant therapy is elected to preventrecurrent myocardial infarction, an INR of 2.5-3.5 isrecommended, consistent with Food and Drug Administrationrecommendations. THROMBOPLASTIN TIME [id number] 15:30:00* Test Item Value Reference Range Comments THROMBOPLASTIN TIME PARTIAL (test code=PTT) 28.3 SECONDS 23.4-37.0 Therapeutic Range for Heparin EFFECTIVE 08/29/12 Heparin IU/mL aPTT Seconds0.3 64.30.7 88.8 TROPONIN I [id number] 15:23:00* Test Item Value Reference Range Comments TROPONIN I RAPID (test code=TROPIRAP) 0.03 ng/mL 0.00-0.079 ISTAT TROPONIN I CRITERIA0.00-0.08 ng/mL - Negative>0.08 ng/mL - Positive The use of serial sampling and testing protocol is arecommended practice.An elevated troponin level alone is often not sufficient fordiagnosis of myocardial infarction. Troponin results obtained by different assays may vary.Evaluation of the extent of myocardial damage based onincrease of troponin would be valid only if similarmethodology is used. LACTIC ACID [id number] 15:23:00* Test Item Value Reference Range Comments LACTIC ACID POC (test code=LACTP) 3.11 mmol/L 0.7-2.0 CBC W/AUTO [id number] 15:23:00* Test Item Value Reference Range Comments WHITE BLOOD CELL (test code=WBC) 5.9 x10 3/uL 5.0-12.0 RED BLOOD CELL (test code=RBC) 5.27 x10 6/uL 4.70-6.10 HEMOGLOBIN (test code=HGB) 16.6 g/dL 14.0-18.0 HEMATOCRIT (test code=HCT) 47.5 % 37.0-49.0 MEAN CELL VOLUME (test code=MCV) 90 fL 80-94 MEAN CELL HGB (test code=MCH) 31.5 pg 27-31 MEAN CELL HGB CONCENTRATION (test code=MCHC) 34.9 g/dL 33-37 RED CELL DISTRIBUTION WIDTH (test code=RDW) 14.6 % 11.5-15.5 PLATELET COUNT (test code=PLT) 143 x10 3/uL 130-400 MEAN PLATELET VOLUME (test code=MPV) 10.4 fL 9.4-16.4 NEUTROPHIL % (test code=NT%) 64.8 % 43-65 IMMATURE GRANULOCYTE % (test code=IG%) 0.2 % 0.0-2.0 LYMPHOCYTE % (test code=LY%) 25.3 % 20.5-45.5 MONOCYTE % (test code=MO%) 7.0 % 5.5-11.7 EOSINOPHIL % (test code=EO%) 1.7 % 0.9-2.9 BASOPHIL % (test code=BA%) 1.0 % 0.2-1.0 NUCLEATED RBC % (test code=NRBC%) 0.0 % 0-1.0 NEUTROPHIL # (test code=NT#) 3.81 x10 3/uL 2.2-4.8 IMMATURE GRANULOCYTE # (test code=IG#) 0.01 x10 3/uL 0-0.03 LYMPHOCYTE # (test code=LY#) 1.49 x10 3/uL 1.3-2.9 MONOCYTE # (test code=MO#) 0.41 x10 3/uL 0.3-0.8 EOSINOPHIL # (test code=EO#) 0.10 x10 3/uL 0.0-0.2 BASOPHIL # (test code=BA#) 0.06 x10 3/uL 0.0-0.1 CHEST 2 [id number] 16:23:00 [facility] [address] [place], [place] [id number] Patient Name: EDWIN COLLINS SR MR #: [id number] : 1950 Age/Sex: 67/M Req #: [id number] Adm Physician: Ordered by: WILBER POLLACK MD Report #: [id number] Location: OR Room/Bed: Procedure: [id number] DX/CHEST 2 VIEWS Exam Date: Exam Time: REPORT STATUS: Signed EXAMINATION: PA and lateral views of the chest. COMPARISON: None CLINICAL HISTORY: Pr eoperative for hernia surgery DISCUSSION: Left subclavian approac h implantable cardiac device body and lead, with the lead projecting over the expected region of the right ventricle. Multiple median sternotomy wires and f ractured paramedian cerclage wires with mediastinal surgical clips. Mild enlar gement of the cardiac silhouette without overt pulmonary edema. Atheroscleroti c calcification of the aortic arch. Lungs are without consolidation, pleural e ffusion, or pneumothorax. Calcified granuloma laterally within the right lung base. No osseous destructive lesions. IMPRESSION: No acute cardiopu lmonary abnormalities. Signed by: Dr. Halima Hernandez M.D. on 4:25 PM Dictated By: HALIMA HERNANDEZ MD [id number] Transcribed By: BROOKLYN on 04/09/18 [id number] COPY TO: WILBER POLLACK MD
[2019-04-04 11:30] VITALS: BP 110/70
--- NOTE | 2019-04-18 17:40 | Operative Report ---
DATE OF PROCEDURE: 04/04/2019 SURGEON: Kit Chanel MD PREOPERATIVE DIAGNOSIS: Malfunction of penile prosthesis. POSTOPERATIVE DIAGNOSIS: Malfunction of penile prosthesis. OPERATIVE PROCEDURE: Removal and replacement of penile prosthesis. ANESTHESIA: General anesthesia. ESTIMATED BLOOD LOSS: 100 cc. INDICATIONS: Mr. Dada Reyes is a 68-year-old diabetic male with a long history of erectile dysfunction who previously had a placement of an inflatable penile prosthesis. He had sudden significant problems with persistent auto inflation and inability to deflate the prosthesis. He now presents for removal and replacement with malleable prosthesis. DESCRIPTION OF PROCEDURE: The patient was brought into the operating room, placed in supine position. After administration of general anesthesia was prepped and draped in the usual sterile fashion. The Cole catheter was placed and the balloon inflated. The urinary efflux was noted to be clear. A penoscrotal incision was made sharply and dissection was carried out through the layers of the penis. The first right and left corporal bodies were entered using the electrocautery device and the cavernosal bodies were removed using a right angle clamp. The tubing between the pump was cut and both of the cavernosal cylinders were removed. The pump was also removed in its entirety after penoscrotal incision. The tubing was then followed up to the level of the right wound where the reservoir was placed. A separate incision was made horizontally over the previously horizontal incision and the fascia was approximately 4 cm. The reservoir was then removed in its entirety. The pelvis was copiously irrigated using antibiotic saline. The fascia was closed with a running Vicryl suture and the layers of the abdomen were closed with skin being closed with a subcuticular stitch. A red rubber catheter was used to irrigate the corporal body bilaterally and they were measured. They measured approximately 20 cm in length on both sides in a malleable prosthesis was placed. These were then placed into the corporal bodies without difficulty and corporal incisions closed using a running PDS stitch. The wounds were then irrigated and closed in layers. The skin again being closed with a subcuticular stitch. The wound was then cleaned and dried and covered with Mastisol, Steri-Strips and a sterile gauze dressing. Anesthesia was reversed and the patient was transferred to a bed and taken to the postanesthesia care unit in good condition. Of note, the needle and instrument count were correct at the conclusion of the case. MD SALTY Cruz/NASH /[id number]
== END | disposition home or self-care (01) ==
LOC: MERGE 07:01 → OR 07:01
PROVIDERS: ATTEND Urology
DX: T83.9XXA Unspecified complication of genitourinary prosthetic device, implant and graft, initial encounter (principal); Y83.8 Other surgical procedures as the cause of abnormal reaction of the patient, or of later complication, without mention of misadventure at the time of the procedure; Z68.30 Body mass index [BMI] 30.0-30.9, adult; N32.0 Bladder-neck obstruction; I25.810 Atherosclerosis of coronary artery bypass graft(s) without angina pectoris; E11.22 Type 2 diabetes mellitus with diabetic chronic kidney disease; I13.0 Hypertensive heart and chronic kidney disease with heart failure and stage 1 through stage 4 chronic kidney disease, or unspecified chronic kidney disease; N18.3 Chronic kidney disease, stage 3 (moderate); I50.9 Heart failure, unspecified; F32.9 Major depressive disorder, single episode, unspecified; Z95.1 Presence of aortocoronary bypass graft; Z87.891 Personal history of nicotine dependence
CPT/HCPCS: 36415 ×2; 54416; 71046; 80048; 82948; 85025; 88300; 93005; C2622; J0131; J0696; J1100; J2001 ×2; J2704; J3010